=== PATIENT | female | born 1960 | race Caucasian/White ===

== ENCOUNTER → 2016-09-27 | Outpatient (CLI) | payer OTHER ==
[~2016-09-27] MED LIST: ASPI81TA2 PO; BIMA2.5D6 BOTH EYES; ESOM40CA PO; GLIM4TAB PO; LOSA50TA52 PO; METO25TA6 PO; ONDA4TAB7 PO; TIMO5DRO7 BOTH EYES; TRAM50TA4 PO
== END ==
LOC: NWCC 09:25
PROVIDERS: ATTEND Internal Medicine
DX: E11.621 Type 2 diabetes mellitus with foot ulcer (principal); L97.412 Non-pressure chronic ulcer of right heel and midfoot with fat layer exposed; Z89.411 Acquired absence of right great toe; Z86.14 Personal history of Methicillin resistant Staphylococcus aureus infection; N19 Unspecified kidney failure